=== PATIENT | female | born 1970 | race Caucasian/White ===

== ENCOUNTER → 2017-02-23 | Outpatient (CLI) | payer OTHER | LOC: CIMAGING 13:20 | DX: R92.8 Other abnormal and inconclusive findings on diagnostic imaging of breast (principal) | CPT/HCPCS: G0206 ==

== ENCOUNTER → 2017-10-27 | Outpatient (CLI) | payer OTHER | LOC: CIMAGING 14:16 | PROVIDERS: ATTEND Family Medicine | DX: Z12.31 Encounter for screening mammogram for malignant neoplasm of breast (principal) ==

== ENCOUNTER → 2018-11-23 | Outpatient (CLI) | payer OTHER | LOC: CIMAGING 12:36 | PROVIDERS: ATTEND Family Medicine | DX: Z12.31 Encounter for screening mammogram for malignant neoplasm of breast (principal) ==

== ENCOUNTER → 2018-12-01 | Outpatient (CLI) | payer OTHER | LOC: CIMAGING 13:34 | PROVIDERS: ATTEND Family Medicine | DX: R92.8 Other abnormal and inconclusive findings on diagnostic imaging of breast (principal); R59.0 Localized enlarged lymph nodes | CPT/HCPCS: 76641-PO ==

== ENCOUNTER → 2018-12-20 | Outpatient (CLI) | payer OTHER ==
[~2018-12-20] MED LIST: BUPIVACAINE 0.5% 30 ML SDV ONE; LIDOCAINE 1% 300 MG/30 ML SDV ONE
== END ==
LOC: FIMAGING 07:20
PROVIDERS: ATTEND Family Medicine
DX: C50.912 Malignant neoplasm of unspecified site of left female breast (principal); C77.9 Secondary and unspecified malignant neoplasm of lymph node, unspecified
CPT/HCPCS: CPT4PN

== ENCOUNTER → 2019-01-10 | Outpatient (CLI) | payer OTHER ==
[~2019-01-10] MED LIST changes: -BUPIVACAINE 0.5% 30 ML SDV ONE; +GADOBUTROL 10 ML VIAL IVP ONE; -LIDOCAINE 1% 300 MG/30 ML SDV ONE
== END ==
LOC: FIMAGING 06:56
PROVIDERS: ATTEND Internal Medicine Hematology & Oncology
DX: C50.812 Malignant neoplasm of overlapping sites of left female breast (principal); Z17.0 Estrogen receptor positive status [ER+]
CPT/HCPCS: 77049; 78306; A9503; A9585; C8908

== ENCOUNTER 2019-01-27 07:49 | Outpatient (CLI) | payer OTHER ==
[2019-01-27] MEDS ORDERED: MEPERIDINE 25 MG/ML SYR IVP PRN (07:54)
[2019-01-27] MEDS ORDERED: NALOXONE HCL 0.4 MG/ML INJ IVP PRN (07:54)
[2019-01-27] MEDS ORDERED: fentaNYL 100 MCG/2 ML INJ IVP PRN (07:54)
[2019-01-27] MEDS ORDERED: MIDAZOLAM 2 MG/2 ML VIAL IVP PRN (07:54)
[2019-01-27] MEDS ORDERED: FLUMAZENIL 0.5 MG/5 ML MDV IVP PRN (07:54)
[2019-01-27] MEDS ORDERED: NS 1,000 ML IV SCH (08:00)
[2019-01-27] MEDS ORDERED: GADOBUTROL 10 ML VIAL IVP ONE (08:16)
[2019-01-27] MEDS ORDERED: LIDOCAINE 1% 5 ML SDV ONE (08:17)
[2019-01-27] MEDS ORDERED: NA BICARBONATE 50 MEQ/50 ML VIAL ONE (08:17)
[2019-01-27] MEDS ORDERED: BUPIVACAINE 0.5% 30 ML SDV ONE (08:17)
[2019-01-27 08:38] VITALS: BP 110/81
[2019-01-27] MEDS ORDERED: MIDAZOLAM 2 MG/2 ML VIAL ONE (09:12)
[2019-01-27] MEDS ORDERED: fentaNYL 100 MCG/2 ML INJ ONE (09:12)
[2019-01-27] MEDS ORDERED: NALOXONE HCL 0.4 MG/ML INJ ONE (09:12)
[2019-01-27] MEDS ORDERED: FLUMAZENIL 0.5 MG/5 ML MDV IVP ONE (09:12)
--- NOTE | 2019-01-27 09:28 | PDGENHP ---
History & Physical Chief Complaint: breast CA Cardiorespiratory Assessment: RRR, clear
--- NOTE | 2019-01-27 09:28 | PDPROPOC ---
Sedation Plan of Care Sedation Plan of Care: vital signs stable, mental status noted, patient educated of risks, benefits, alternatives, patient can tolerate sedation ASA Classification: ASA 1 Planned drugs: fentanyl, midazolam Mallampati Score: Class 1 Mallampati Reference Image: Patient passed 3-3-2 rule?: Yes
[2019-01-27] MEDS ORDERED: ONDANSETRON 4 MG/2 ML VIAL IVP PRN (10:30)
[2019-01-27] MEDS ORDERED: ACETAMINOPHEN 325 MG TAB PO PRN (10:30)
== END 2019-01-27 11:40 | disposition home or self-care (01) ==
LOC: FIMAGING 07:49
PROVIDERS: ATTEND Surgery
PROC: 0HBU3ZX Excision of Left Breast, Percutaneous Approach, Diagnostic (ICD-10-PCS; principal; 2019-01-27)
DX: C50.812 Malignant neoplasm of overlapping sites of left female breast (principal)
CPT/HCPCS: A9585; J2250; J2310; J3010

== ENCOUNTER 2019-03-04 09:31 | Observation (INO) | payer OTHER ==
[2019-03-04] MEDS ORDERED: LR 1,000 ML IV ONE (09:43)
[2019-03-04] MEDS ORDERED: ceFAZolin 2 GM/DEXTROSE 100 ML IV ONE (09:43)
--- NOTE | 2019-03-04 11:44 | PDANEPAE ---
ANE Past Medical History - Cardiovascular History Hx Hypertension: No Hx Arrhythmias: No Hx Chest Pain: No Hx Coronary Artery / Peripheral Vascular Disease: No Hx CHF / Valvular Disease: No Hx Palpitations: No - Pulmonary History Hx COPD: No Hx Asthma/Reactive Airway Disease: No Hx Recent Upper Respiratory Infection: No Hx Oxygen in Use at Home: No Hx Sleep Apnea: No Sleep Apnea Screening Result - Last Documented: Negative - Neurologic History Hx Cerebrovascular Accident: No Hx Seizures: No Hx Dementia: No Neurologic History Comment: Migraines - Endocrine History Hx Diabetes: No Hypothyroid: Yes Endocrine History Comment: Partial thyroidectomy on armour thyroid. - Renal History Hx Renal Disorders: No - Liver History Hx Hepatic Disorders: No - Neurological & Psychiatric Hx Hx Neurological and Psychiatric Disorders: Yes Neurological / Psychiatric History Comment: Depression/anxiety - Cancer History Hx Cancer: Yes Cancer History Comment: L breast CA - Congenital Disorder History Hx Congenital Disorders: No - GI History Hx Gastrointestinal Disorders: No - Other Health History Other Health History: D&C 2000 - Chronic Pain History Chronic Pain: No - Surgical History Prior Surgeries: L breast biopsy 12/20/18. L sentinal MRI guided biopsy 01/27/19. L breast bx 2014. DNC 2000. [place] teeth extraction. Thyroidectomy 2000 ANE Review of Systems Review of Systems: - Exercise capacity METS (RN): 4 METS ANE Patient History - Allergies Allergies/Adverse Reactions: No Known Allergies Allergy (Verified 01/27/19 08:38) - Home Medications Home Medications: Levothyroxine [Synthroid 25 mcg (*)] 12.5 mcg PO DAILY06 01/25/19 [Last Taken ] Sertraline HCl [Zoloft 100mg (*)] 100 mg PO HS 01/25/19 [Last Taken 03/03/19] Thyroid,Pork [[place] Thyroid] 45 mg PO DAILY 01/25/19 [Last Taken 03/04/19] Sumatriptan Succinate [Imitrex] 100 mg PO DAILY PRN 01/27/19 [Last Taken ] Acetaminophen/ASA/Caffeine [Excedrin Tablet (*)] 1 each PO DAILY PRN 02/24/19 [ Last Taken 1 Week Ago ~02/25/19] Cholecalciferol Vit D3 [Vitamin D3 2000 units tab (OTC)] 4,000 units PO DAILY [Last Taken 1 Week Ago ~02/25/19] Herbals/Supplements -Info Only 1 ea PO DAILY 02/24/19 [Last Taken 1 Week Ago ~] Naproxen Sodium [Aleve 220 MG (*)] 220 mg PO BID PRN 02/24/19 [Last Taken 2 Weeks Ago ~02/18/19] Niacin [Niacin 500 mg (*)] 500 mg PO DAILY 02/24/19 [Last Taken 1 Week Ago ~08/06] [place]-3 Fatty Acids [Fish Oil 1000 mg (*)] 1,000 mg PO DAILY 02/24/19 [Last Taken 1 Week Ago ~02/25/19] Vitamin B Complex [Vitamin B Complex (OTC)] 1 each PO DAILY 02/24/19 [Last Taken 1 Week Ago ~02/25/19] - NPO status NPO Since - Liquids (Date): 03/04/19 NPO Since - Liquids (Time): 07:30 NPO Since - Solids (Date): 03/03/19 NPO Since - Solids (Time): 21:00 - Smoking Hx Smoking Status: Never smoked - Family Anes Hx Family Hx Anesthesia Complications: None. ANE Labs/Vital Signs - Vital Signs Blood Pressure: 116/82 Heart Rate: 54 Respiratory Rate: 14 O2 Sat (%): 94 Height: 160.02 cm Weight: 58.967 kg ANE Physical Exam - Airway Mallampati Score: Class 1 - ASA Status ASA Status: II ANE Anesthesia Plan Anesthesia Plan: GA w LMA
[2019-03-04] MEDS ORDERED: BACITRACIN ZINC 0.5 OZ OINTTUBE TP ONE (11:50)
[2019-03-04] MEDS ORDERED: GENTAMICIN SULFATE 80 MG/2 ML VIAL ONE (11:50)
[2019-03-04] MEDS ORDERED: THROMBIN (BOVINE) 5,000 UNIT VIAL TP ONE (11:50)
[2019-03-04] MEDS ORDERED: BACITRACIN 50,000 UNITS/10 ML SYR IRR ONE (11:51)
[2019-03-04] MEDS ORDERED: METHYLENE BLUE 0.5% 50 MG/10 ML AMP ONE (11:51)
[2019-03-04] MEDS ORDERED: ceFAZolin 1 GM/5 ML SYR ONE (11:51)
--- NOTE | 2019-03-04 11:51 | PDHPUP ---
History & Physical Update H&P update statement: This history and physical update is based on an assessment of the patient which was completed after admission or registration (within 24 hours), but prior to the surgery/procedure. H&P update: H&P reviewed & patient examined, no change in patient's condition since H&P completed
[2019-03-04] MEDS ORDERED: ONDANSETRON 4 MG/2 ML VIAL IVP PRN ×2 (11:58→16:43)
[2019-03-04] MEDS ORDERED: HYDROmorphONE/DILAUDID 1 MG/ML INJ IVP PRN (11:58)
[2019-03-04] MEDS ORDERED: diphenhydrAMINE 25 MG CAP PO PRN (11:58)
[2019-03-04] MEDS ORDERED: ONDANSETRON DISINTEGRATING 4 MG TAB PO PRN (11:58)
--- NOTE | 2019-03-04 12:29 | GHP ---
[f rep st] PREOP HISTORY AND PHYSICAL DATE OF ADMISSION: 03/04/2019 PREOP DIAGNOSIS: Multifocal left breast cancer. HISTORY OF PRESENT ILLNESS: 48-year-old woman, who had her screening mammogram in November 2018 that showed breast density type D and nodular asymmetry of the left breast with microcalcifications. [facility] gn[facility] mammogram and ultrasound 12/01/2018 showed hypoechoic irregular mass. Ultrasound-guided need le biopsy on 12/20/2018 of 3 separate areas, specimen #1 left breast, 3 o'clock position, specimen 2 left breast, 1 o'clock position, specimen 3 left axillary lymph node. Specimen 1 showed invasive madeleine yaneth carcinoma with lobular features, ER, NC positive, Ki-67 15%, HER-2/pam negative. Specimen 2 show ed no evidence of malignancy. Specimen 3 showed metastatic adenocarcinoma consistent with breast marah zach. Family history of breast cancer in a maternal aunt in her 40s. Mother with carcinoid. 11 at first menstrual period. She is premenopausal, no Ashkenazi Church ancestry. She recently discontinu ed hormone replacement therapy. She had genetic testing done, which was negative. She had a breast MRI, biopsy on 01/27/2019, which showed infiltrating lobular carcinoma, multifocal. She presents tod ay for bilateral mastectomy with lymph node biopsy, and reconstruction by Plastic Surgery. PAST MEDICAL HISTORY: 1. Migraine headaches. 2. Depression. PAST SURGICAL HISTORY: 1. Thyroidectomy. 2. [place] teeth extraction. FAMILY HISTORY: Significant for breast cancer, depression, carcinoid tumor in mother. SOCIAL HISTORY: She is with 2 children. She denies tobacco, alcohol, or recreational drug u se. ALLERGIES: No known drug allergies. REVIEW OF SYSTEMS: No fevers or chills. PHYSICAL EXAM: GENERAL: Well-developed, well-nourished woman in no acute distress. HEENT: Normoce phalic, atraumatic. No hearing deficits. Pupils equal and round. No scleral icterus. Mucous membr anes moist. NECK: Trachea midline. RESPIRATORY: Clear to auscultation bilaterally. No increased work of breathing. CARDIOVASCULAR: Regular rate and rhythm. No peripheral edema. LYMPH: No cervi domenico, supraclavicular, or axillary lymphadenopathy. PSYCH: Mod and affect normal. NEURO: Grossly i ntact. ASSESSMENT/PLAN: A 48-year-old woman with left breast invasive ductal carcinoma, invasive lobular ca rcinoma, and evidence of metastatic disease in the axillary lymph nodes. She presents at this time f or bilateral mastectomy with right breast sentinel lymph node biopsy, right axillary sentinel lymph n ode biopsy, left axillary dissection. We discussed risks of surgery, including but not limited to he art attack, stroke, blood clots, or . We discussed risk of infection, bleeding, damage to surro unding structures including nerves, scarring, or recurrence, or need for additional procedures, or ly mphedema. She understands the risks and would like to proceed. The patient was additionally seen by Dr. Renee Kendrick, who agrees with the above impression and plan. /[id number]/MODL
[2019-03-04] MEDS ORDERED: MIDAZOLAM 2 MG/2 ML VIAL ONE (12:43)
[2019-03-04] MEDS ORDERED: fentaNYL 100 MCG/2 ML INJ ONE ×3 (12:44→16:16)
[2019-03-04] MEDS ORDERED: PROPOFOL 200 MG/20 ML VIAL ONE (12:44)
[2019-03-04] MEDS ORDERED: ONDANSETRON 4 MG/2 ML VIAL ONE (12:48)
[2019-03-04] MEDS ORDERED: METOCLOPRAMIDE 10 MG/2 ML VIAL ONE (12:48)
[2019-03-04] MEDS ORDERED: LIDOCAINE 2% JELLY 6 ML TOPICAL SYR ONE (12:48)
--- NOTE | 2019-03-04 16:30 | POSTOPPROG ---
Post Op Note Date of Operation: 03/04/19 Surgeon: Renzo Magallon Operation Shift Supervisor: Saul RAMON Anesthesia: GET(General Endotracheal) Pre-op Diagnosis: Left breast cancer Post-op Diagnosis: Same Indication: left breast cancer Procedure: Tissue classification analyst reconstruction Inf/Abcess present in the surg proc area at time of surgery?: No EBL: Minimal (30cc) Total fluids administered: 1000cc Complications: none Drains: Santi Joyner (JPx4) Specimen(s): none
[2019-03-04] MEDS ORDERED: NALOXONE HCL 0.4 MG/ML INJ IVP PRN (16:43)
[2019-03-04] MEDS ORDERED: PROMETHAZINE HCL 25 MG/ML INJ IVP PRN (16:43)
[2019-03-04] MEDS ORDERED: LR 500 ML IV PRN (16:43)
[2019-03-04] MEDS ORDERED: MEPERIDINE 25 MG/0.5 ML AMP IVP PRN (16:43)
[2019-03-04] MEDS ORDERED: fentaNYL 100 MCG/2 ML INJ IVP PRN (16:43)
--- NOTE | 2019-03-04 16:44 | POSTANESTH ---
Post Anesthetic Evaluation Cardiovascular Status: Normal, Stable Respiratory Status: Normal, Stable Level of Consciousness/Mental Status: Can Participate in Eval Pain Control: Adequate, Prn Tx Ordered Nausea/Vomiting Control: Adequate, Prn Tx Ordered Complications Possibly Related to Anesthesia: None Noted
[2019-03-04] MEDS ORDERED: HYDROmorphONE/DILAUDID 1 MG/ML INJ ONE (16:57)
[2019-03-04] MEDS ORDERED: PROMETHAZINE HCL 25 MG/ML INJ ONE (16:59)
[2019-03-04] MEDS: HYDROmorphONE/DILAUDID 1 MG/ML INJ IVP PRN ×3 (17:03→17:28)
[2019-03-04] MEDS: CYCLOBENZAPRINE 10 MG TAB PO SCH ×2 (18:14→21:08)
--- NOTE | 2019-03-04 18:36 | GOP ---
[f rep st] OPERATIVE REPORT DATE OF OPERATION: 03/04/2019 SURGEON: Renzo Magallon MD AMUSEMENT EQUIPMENT OPERATOR: Saul Vincent, certified medical surgical tech. ANESTHESIA: General endotracheal. PREOPERATIVE DIAGNOSIS: Left breast cancer. POSTOPERATIVE DIAGNOSIS: Left breast cancer. PROCEDURE PERFORMED: 1. Bilateral tissue expanders. 2. AlloDerm insertion bilaterally. FINDINGS: Bilateral skin-sparing mastectomies. SPECIMENS: None. ESTIMATED BLOOD LOSS: 30. DESCRIPTION OF PROCEDURE: The patient was met previously in my office, where the risks and benefits were discussed with her at length, which include, but not limited to infection, bleeding, hematoma, s eroma, asymmetry, partial or total skin flap necrosis, injuries to major vessels or nerves, need for further revision surgeries. She was agreeable to this and therefore, signed the operative consent. Prior to going back into the operating room, the patient received 2 g of Ancef preoperatively for ant ibiotic prophylaxis. No urinary catheter was placed due to the length of the case. SCDs were placed for DVT prophylaxis. The bilateral mastectomy parts will be dictated by my colleague, Dr. Renee cano. Similar procedures were performed on each side. We began on the patient's right side where the mastectomy flaps were examined and deemed to be viable. This was washed out with copious amounts of sterile saline. We identified the lateral border of the pectoralis major muscle. This was elevated off the chest wall to develop the subpectoral pocket. This was developed superiorly, medially and th en the inferior border of the pectoralis major muscle was detached from the chest wall. Once the sub pectoral pocket was developed and all the intercostal perforators were coagulated with electrocautery , this was again washed out. We measured this pocket and deemed this to be approximately 12 cm. The refore, the footplate was then traced out with methylene blue along the chest wall. A 16 x 20 piece AlloDerm was then cut and contoured to complete the subpectoral pocket. This was then sutured down t o the patient's inferior mammary fold, as well as lateral chest wall. This was done with a running 2 -0 Vicryl suture. The pocket was then washed out with copious amounts of sterile saline and triple a ntibiotic saline. My engineering inspection assistant and I then changed our gloves. We then selected a 133 MX-12-T 400 mL capacity auto service instructor for the right side. All of the air was taken out in a closed sterile fashion. Th is was then placed within the subpectoral pocket and oriented correctly. The suture tabs were then s utured to the chest wall with 2-0 Vicryl sutures to prevent migration and to ensure correct placement . The subpectoral pocket was then completed by sewing the superior border of the AlloDerm to the inf erior border of the pectoralis major muscle with a running 2-0 Vicryl suture. Two fifteen-[place] rou nd ANAYELI drains were placed, one within the axilla and one along the inframammary fold. This was suture d to the skin with 2-0 silk sutures. We then temporarily closed the skin with skin phyllis. We then filled, in closed sterile conditions, 200 mL into the right tissue auto service instructor with methylene blue-infu sed sterile saline. The skin was then closed complexly with 3-0 Monocryl subdermal sutures and skin phyllis. The exact same procedure was then performed on the left side, again using a 16 x 20 thick p iece of AlloDerm, as well as a 133 MX-12-T auto service instructor that was also filled to 200 mL on the left side. Two JPs were also placed on the left side. Surgical dressings were then placed, which included baci tracin, Xeroform, fluffs, as well as bandages on the drains. The patient was placed in a surgical rodriges pport bra. The count was correct at the end of the case. There were no immediate complications. Zulay ha was woken and taken to PACU in good condition. IV FLUIDS: 1 L. URINARY OUTPUT: Not recorded. COMPLICATIONS: None. /[id number]/MODL
[2019-03-04] MEDS: IBUPROFEN 600 MG TAB PO SCH (21:08)
[2019-03-04] MEDS: HYDROCODONE/APAP 5/325 TAB PO PRN (23:45)
[2019-03-05] MEDS: IBUPROFEN 600 MG TAB PO SCH ×4 (05:20→21:11)
--- NOTE | 2019-03-05 06:55 | POSTOPPROG ---
Post Op Note Date of Operation: 03/05/19 Surgeon: Renee Kendrick Screen Handler: karla Anesthesiologist: sohan Anesthesia: GET(General Endotracheal) Pre-op Diagnosis: L breast cancer Post-op Diagnosis: same Indication: 48 yo with left breast multifocal invasive breast ca Procedure: B mast R sln L axillary dissection Findings: palpable nodes in l axilla Inf/Abcess present in the surg proc area at time of surgery?: No EBL: 50-100 (R breast, r sln, L breast, L axillary contents)
--- NOTE | 2019-03-05 07:17 | GOP ---
[f rep st] OPERATIVE REPORT DATE OF OPERATION: 03/04/2019 SURGEON: Renee Kendrick MD TRAVELING CRANE OPERATOR: Dona May PA-C. ANESTHESIA: General. ANESTHESIOLOGIST: Dr. Luis Armando Munguia. PREOPERATIVE DIAGNOSIS: Left breast multifocal invasive cancer with positive lymph nodes. POSTOPERATIVE DIAGNOSIS: Left breast multifocal invasive cancer with positive lymph nodes. PROCEDURE PERFORMED: 1. Bilateral mastectomy. 2. Right sentinel lymph node and left axillary dissection. FINDINGS: She had multiple palpable nodes in the left axilla. ESTIMATED BLOOD LOSS: 50 cc. INDICATIONS: The patient is a 48-year-old woman who has left breast multifocal invasive carcinoma wi th associated lymphadenopathy. DESCRIPTION OF PROCEDURE: The patient was brought into the operating room and placed supine on the t able. General anesthesia was administered. Her bilateral chest and axillae were prepped and draped in the usual sterile fashion. I started on the right side and made an ellipse around her nipple-areo lar complex. I created superior and inferior flaps. I dissected up to the clavicle, sternum, infram ammary fold, and mid-axillary line. I removed the breast, including the pectoralis fascia. It was m arked short superior and long lateral. I then broke into the axillary space, identified the sentinel lymph node, excised this and sent this to Pathology for permanent. Hemostasis was achieved. I then moved to the left side and again made an ellipse around the nipple-areolar complex in a similar [facility] ion. I created skin flaps, and my dissection occurred to the clavicle, sternum, inframammary fold, a nd mid-axillary line. I removed the breast, including the pectoralis fascia. On the left side, I ma de the access into the axilla slightly larger and was able to identify and protect the thoracodorsal nerve complex and the axillary vein. I grasped the lymph nodes and excised the packet. I reach into the cavity, and no additional palpable nodes were found. I did take some nodes from underneath the pectoralis. Hemostasis was achieved. Dr. Magallon was then able to complete his portion of the case . /[id number]/MODL
[2019-03-05] MEDS: CYCLOBENZAPRINE 10 MG TAB PO SCH ×3 (08:48→21:11)
[2019-03-05] MEDS: HYDROCODONE/APAP 5/325 TAB PO PRN ×2 (08:48→11:42)
--- NOTE | 2019-03-05 10:49 | SOAPPROG ---
ROSA Progress Note Assessment/Plan: Assessment: 48yo F s/p theresa mastectomies L ALND, R SLNB - VSS, HDS - pain is controlled - JPs bloody, clearing. L axilla with higher output but appropriate - chest feels tight, anticipated - ok for DC later today vs tomorrow. Will check in later Plan: 03/05/19 10:47 Subjective: feels well, unsure if she wants to dc today Objective: Vital Signs Temp Pulse Resp BP Pulse Ox 36.7 C 62 14 102/58 L 99 03/05/19 08:00 03/05/19 08:00 03/05/19 08:00 03/05/19 08:00 03/05/19 08:00 03/04/19 03/05/19 03/06/19 05:59 05:59 05:59 Intake Total 1860 Output Total 250 500 Balance 1610 -500 ICD10 Worksheet Patient Problems: Problems Problem Status Onset Breast cancer Acute - ICD10 Problem Qualifiers (1) Breast cancer
--- NOTE | 2019-03-05 16:42 | ASMTCMCOM ---
CM Note CM Note Notes: Pt is s/p bilateral mastectomy. She will d/c home independent with her when medically cleared. She may d/c today. D/C plan: home independent Date Signed: 03/05/2019 04:41 PM Electronically Signed By:SHEMAR Bingham
[2019-03-05] MEDS ORDERED: SERTRALINE HCL 100 MG TAB PO SCH (22:15)
[2019-03-06] MEDS: IBUPROFEN 600 MG TAB PO SCH (06:07)
[2019-03-06] MEDS ORDERED: ACETAMINOPHEN/ASA/CAFFEINE 1 EACH TAB PO PRN (07:12)
[2019-03-06] MEDS ORDERED: SUMAtriptan 50 MG TAB PO PRN (07:15)
[2019-03-06] MEDS: CYCLOBENZAPRINE 10 MG TAB PO SCH (08:03)
[2019-03-06 08:21] VITALS: BP 104/66
[2019-03-06] MEDS ORDERED: OMEGA-3 FATTY ACIDS 1,000 MG CAP PO SCH (09:00)
[2019-03-06] MEDS ORDERED: VITAMIN B COMPLEX 1 EA CAP/TAB PO SCH (09:00)
[2019-03-06] MEDS ORDERED: Herbals/Supplements -Info Only PO SCH (09:00)
[2019-03-06] MEDS ORDERED: NIACIN 500 MG TAB PO SCH (09:00)
[2019-03-06] MEDS ORDERED: CHOLECALCIFEROL VIT D3 2,000 UNITS TAB/CAP PO SCH (09:00)
[2019-03-06] MEDS ORDERED: [UNRECOGNIZED DRUG - OTHER] PO SCH (09:00)
[2019-03-07] MEDS ORDERED: LEVOTHYROXINE 25 MCG TAB PO SCH (06:00)
== END 2019-03-06 11:09 | disposition home or self-care (01) ==
LOC: F3E 09:31
PROVIDERS: ADMIT Surgery; ATTEND Surgery
PROC: 07T60ZZ Resection of Left Axillary Lymphatic, Open Approach (ICD-10-PCS; principal; 2019-03-04 12:30)
PROC: 07B50ZX Excision of Right Axillary Lymphatic, Open Approach, Diagnostic (ICD-10-PCS; principal; 2019-03-04 12:30)
PROC: 0HTV0ZZ Resection of Bilateral Breast, Open Approach (ICD-10-PCS; principal; 2019-03-04 12:30)
PROC: 0HHV0NZ Insertion of Tissue Expander into Bilateral Breast, Open Approach (ICD-10-PCS; 2019-03-04 12:30)
PROC: 0HR Skin and Breast, Replacement (ICD-10-PCS; 2019-03-04 12:30)
PROC: 3E0W3HZ Introduction of Radioactive Substance into Lymphatics, Percutaneous Approach (ICD-10-PCS; 2019-03-04 12:30)
DX: C50.912 Malignant neoplasm of unspecified site of left female breast (principal); C77.3 Secondary and unspecified malignant neoplasm of axilla and upper limb lymph nodes; Z17.0 Estrogen receptor positive status [ER+]; G43.509 Persistent migraine aura without cerebral infarction, not intractable, without status migrainosus; F32.9 Major depressive disorder, single episode, unspecified; E89.0 Postprocedural hypothyroidism; Z80.3 Family history of malignant neoplasm of breast
CPT/HCPCS: 15777; 19303; 19357; 38500; 38525; 78195; A9520; G0378; J0690; J1170; J1580; J2250; J2405; J2550; J2704; J2765; J3010; Q4116; Q9968

== ENCOUNTER → 2019-04-14 | Outpatient (CLI) | payer OTHER | LOC: FIMAGING 14:42 ==